=== PATIENT | male | born 1985 | race Caucasian/White ===

== ENCOUNTER 2021-08-31 18:17 | Emergency (ER) | payer OTHER ==
[2021-08-31 20:23] LABS: HEMOGLOBIN 16.6 gm/dl (14.0-17.5); RED BLOOD COUNT 5.13 M/UL (4.20-5.50); WHITE BLOOD COUNT 19.5 K/UL (4.5-11.0)
[2021-08-31 21:05] LABS: BUN/CREATININE RATIO 19 (0-10)
== END 2021-08-31 22:31 ==
LOC: ER1 18:17
PROVIDERS: Student in an Organized Health Care Education/Training Program
DX: K31.84 Gastroparesis (principal); Z20.822 Contact with and (suspected) exposure to COVID-19
CPT/HCPCS: 0240U; 71045; 80053; 82550; 82553; 83690; 84484; 85025; 93005; 96374; 96375; 99285; J2270; J2405

== ENCOUNTER 2021-09-07 10:49 | Emergency (ER) | payer OTHER ==
[2021-09-07 11:31] LABS: HEMOGLOBIN 17.3 gm/dl (14.0-17.5); RED BLOOD COUNT 5.35 M/UL (4.20-5.50); WHITE BLOOD COUNT 16.6 K/UL (4.5-11.0)
[2021-09-07 11:57] LABS: BUN/CREATININE RATIO 18 (0-10)
[2021-09-07] MEDS ORDERED: BENTYL 20MG TAB20 MG PO (15:13)
== END 2021-09-07 17:05 | disposition home or self-care (01) ==
LOC: ER1 10:49
DX: K31.84 Gastroparesis (principal); D72.829 Elevated white blood cell count, unspecified; I10 Essential (primary) hypertension; K29.80 Duodenitis without bleeding; Z88.0 Allergy status to penicillin; Z20.822 Contact with and (suspected) exposure to COVID-19
CPT/HCPCS: 0240U; 71045; 80053; 82550; 82553; 84484; 85025; 93005; 96374; 96375; 99284; J0360; J1885; J2270; J2405; J2550; Q0177; Q9967